=== PATIENT | female | born 1980 | race Caucasian/White ===

== ENCOUNTER 2018-04-06 17:35 | Emergency (ER) | payer OTHER ==
[~2018-04-06] VITALS: Ht 167.6 cm; Wt 76.2 kg
[2018-04-06 18:30] VITALS: BP 128/90
[2018-04-06] MEDS ORDERED: DIPHTH,PERTUSS(ACELL),TET TOX 0.5 ML DISP.SYRIN. VAX IM ONE (19:00)
[2018-04-06] MEDS ORDERED: BACITRACIN TOPICAL OINT 28GM TUBE. TP ONE (19:00)
[2018-04-06] MEDS ORDERED: AMOXICILLIN/K CLAV 875/125MG TABLET. PO ONE (19:00)
[2018-04-06] MEDS ORDERED: AMOX1TAB61 PO (19:03)
--- NOTE | 2018-04-06 19:04 | PHYS DOC ---
Past History Past Medical History: No Pertinent History Past Surgical History: Tonsillectomy Smoking: Non-smoker Alcohol Use: None Drug Use: None Adult General Chief Complaint Chief Complaint: ANIMAL BITE HPI HPI 37-year-old female presents with report of dog bite to right buttocks which occurred just prior to arrival. Patient reports she was running and a animal on a leash started to run after her and ended up catching hold of her. Patient reports a police report was filed. Dog homoeopath had reported vaccinations were up- to-date. Patient reports last tetanus shot greater than 5 years ago. Denies other injury. Denies . Review of Systems Review of Systems Constitutional: Denies fever or chills [] Eyes: Denies change in visual acuity, redness, or eye pain [] HENT: Denies nasal congestion or sore throat [] Respiratory: Denies cough or shortness of breath [] Cardiovascular: Denies chest pain or palpitations GI: Denies abdominal pain, nausea, vomiting, bloody stools or diarrhea [] : Denies dysuria or hematuria [] Musculoskeletal: Denies back pain or joint pain [] Integument: Reports abrasion/bite wound to right buttocks; denies laceration Neurologic: Denies headache, focal weakness or sensory changes [] Complete systems were reviewed and found to be within normal limits, except as documented in this note. Allergies Allergies Allergies Coded Allergies Type Severity Reaction Last Updated Verified No Known Drug Allergies 04/06/18 No Physical Exam Physical Exam Constitutional: Well developed, well nourished, no acute distress, non-toxic appearance. [] HENT: Normocephalic, atraumatic Eyes: Conjunctiva normal, no discharge. [] Neck: Normal range of motion, supple Cardiovascular: Heart rate regular rhythm, no murmur [] Lungs & Thorax: Bilateral breath sounds clear to auscultation [] Skin: Warm, dry, superficial abrasion/bite wound to right upper buttocks, no active bleeding Extremities: No tenderness, no edema. [] Neurologic: Alert and oriented X 3, no focal deficits noted. [] Psychologic: Affect normal, judgement normal, mood normal. [] Current Patient Data Vital Signs Vital Signs Date Time Temp Pulse Resp B/P (MAP) Pulse Ox O2 Delivery O2 Flow Rate FiO2 04/06/18 18:30 98.4 78 18 98 Room Air EKG EKG [] Radiology/Procedures Radiology/Procedures [] Course & Med Decision Making Course & Med Decision Making Patient presents with superficial abrasion/bite wound to right buttocks from a reported vaccinated dog. No active bleeding appreciated. Empiric antibiotics initiated. Tetanus updated. Wound cleaned and dressed. Patient stable for discharge with outpatient follow-up with PCP. Discussed findings and plan with patient, who acknowledges understanding and agreement. Dragon Disclaimer Dragon Disclaimer This electronic medical record was generated, in whole or in part, using a voice recognition dictation system. Departure Departure: Impression: Primary Impression: Dog bite of buttock Disposition: HOME, SELF-CARE Condition: STABLE Referrals: KALYANI BARCENAS (PCP) Patient Instructions: Animal Bite, [id number] Scripts Amoxicillin/Potassium Clav (AUGMENTIN 875-125 TABLET) 1 Each Tablet 1 TAB PO BID, #14 TAB Prov: ISAÍAS FLORENTINO DO 04/06/18 Problem Qualifiers Primary Impression: Dog bite of buttock Encounter type: initial encounter Laterality: right Qualified Codes: S31.815A - Open bite of right buttock, initial encounter; W54.0XXA - Bitten by dog, initial encounter ISAÍAS FLORENTINO DO Apr 06, 2018 19:04
== END 2018-04-06 19:18 | disposition home or self-care (01) ==
LOC: ER 17:35
DX: S31.815A Open bite of right buttock, initial encounter (principal); W54.0XXA Bitten by dog, initial encounter; Y93.02 Activity, running; Y92.89 Other specified places as the place of occurrence of the external cause; Y99.8 Other external cause status
CPT/HCPCS: 90471; 90715; 99283-25